=== PATIENT | male | born 1955 | race Caucasian/White ===

== ENCOUNTER 2016-12-11 07:53 | Outpatient (CLI) | payer OTHER ==
[2016-06-30 09:45] VITALS: BP 117/83
[2016-12-11 09:02] LABS: eGFR (African) > 60; eGFR (Non-African) > 60
== END 2016-12-11 07:54 ==
LOC: LAB 07:53
PROVIDERS: ATTEND Family Medicine
DX: E11.9 Type 2 diabetes mellitus without complications (principal)
CPT/HCPCS: 36415; 80053; 82043; 83036

== ENCOUNTER → 2017-06-12 | Outpatient (CLI) | payer OTHER ==
[2016-06-30 09:45] VITALS: BP 117/83
[2017-06-12 09:28] LABS: eGFR (African) > 60; eGFR (Non-African) > 60
== END ==
LOC: LAB 08:16
PROVIDERS: ATTEND Family Medicine
DX: E11.9 Type 2 diabetes mellitus without complications (principal)
CPT/HCPCS: 36415; 80053; 80061; 83036

== ENCOUNTER 2017-06-25 07:03 | Outpatient (CLI) | payer OTHER ==
[2016-06-30 09:45] VITALS: BP 117/83
== END 2017-06-25 07:04 ==
LOC: LAB 07:03
PROVIDERS: ATTEND Family Medicine
DX: N52.1 Erectile dysfunction due to diseases classified elsewhere (principal)
CPT/HCPCS: 36415; 84403

== ENCOUNTER 2017-09-16 07:44 | Outpatient (CLI) | payer OTHER ==
[2016-06-30 09:45] VITALS: BP 117/83
== END 2017-09-16 07:45 ==
LOC: LAB 07:44
PROVIDERS: ATTEND Family Medicine
DX: E11.9 Type 2 diabetes mellitus without complications (principal)
CPT/HCPCS: 36415; 83036